=== PATIENT | male | born 1935 | race Caucasian/White ===

== ENCOUNTER → 2016-08-19 | Outpatient (CLI) | payer MEDICARE ==
--- NOTE | 2016-08-19 15:31 | XR ---
EXAMINATION TYPE: XR chest 2V DATE OF EXAM: 08/19/2016 COMPARISON: Chest x-ray October 19, 2013 HISTORY: Cough for 2 weeks. TECHNIQUE: Frontal and lateral views of the chest are obtained. FINDINGS: Cardiac silhouette size is stable and within normal limits with atherosclerotic aortic knob . There is chronic emphysematous change with right-sided volume loss redemonstrated. There are calcif ied upper lung nodules bilaterally and right basilar nodular opacities. There is new right basilar op acity however present. Suspicious air-fluid level is seen. No thick walled cavitation noted. Left valerie g shows no new suspicious opacity. Osseous structures are intact. IMPRESSION: Chronic parenchymal changes with right-sided volume loss redemonstrated. Scattered calci fied nodules raises concern for old varicella infection. New right basilar infiltrate and/or atelecta sis and small right pleural effusion however is felt present. Loculated effusion or air-fluid level i n thin-walled cyst may be present.
== END | disposition home or self-care (01) ==
LOC: RADXRMAIN 15:00
PROVIDERS: ATTEND Family Medicine
DX: J90 Pleural effusion, not elsewhere classified (principal); J98.4 Other disorders of lung; R91.1 Solitary pulmonary nodule; R91.8 Other nonspecific abnormal finding of lung field
CPT/HCPCS: 71020

== ENCOUNTER → 2016-09-01 | Outpatient (CLI) | payer MEDICARE ==
--- NOTE | 2016-09-01 12:57 | XR ---
EXAMINATION TYPE: XR chest 2V DATE OF EXAM: 09/01/2016 COMPARISON: Chest x-ray December 20, 2016. HISTORY: Recent pneumonia progress study. TECHNIQUE: Frontal and lateral views of the chest are obtained. FINDINGS: There is background of chronic emphysematous change with right greater than left biapical pleural thickening and scarring. Scattered calcified nodules bilaterally are seen more prominent in t he right lung. There is right-sided volume loss with mediastinal shift redemonstrated. There is persi stent small right pleural effusion. There is improved aeration right lung base with some residual sca rring or atelectasis. No new focal airspace opacity or pneumothorax is seen bilaterally. The cardiac silhouette size is within normal limits. The osseous structures are intact. IMPRESSION: Chronic changes with persistent small right pleural effusion and residual right basilar scarring and/or atelectasis. Improved or resolved right basilar acute infiltrate is felt present.
== END | disposition home or self-care (01) ==
LOC: RADXRMAIN 12:25
PROVIDERS: ATTEND Family Medicine
DX: J98.11 Atelectasis (principal); J90 Pleural effusion, not elsewhere classified; J98.4 Other disorders of lung
CPT/HCPCS: 71020

== ENCOUNTER → 2016-09-24 | Outpatient (CLI) | payer MEDICARE ==
[2016-09-24 11:34] LABS: Blood Urea Nitrogen 17 mg/dL (9-20); Non-African American GFR(MDRD) >60 (>60 ml/min/1.73 sqM)
--- NOTE | 2016-09-24 14:10 | CT ---
EXAMINATION TYPE: CT chest w con DATE OF EXAM: 09/24/2016 COMPARISON: NONE HISTORY: Abnormal lung sounds CT DLP: 138.8 mGycm Automated exposure control for dose reduction was used. CONTRAST: CT scan of the chest is performed with IV Contrast, patient injected with 100 mL of Omnipaque 300. FINDINGS: LUNGS: Calcified pleural plaques are seen throughout both lung arthur right much greater than left. T here is a masslike density right medial lung base with disorganized vasculature which likely reflects rounded atelectasis. Consider follow-up study in 6 months. There is a small right-sided pleural effu joey. 2 or 3 noncalcified pulmonary nodules left lung mid and lower lung zones measuring up to 4 mm. Scattered calcified nodules within the right lung. There is bilateral bronchiectasis. Hyperexpansion of the left lung relative to the right lung is noted. Mild elevation right hemidiaphragm. Hyperinflat ion compatible with COPD. MEDIASTINUM: There are no greater than 1 cm hilar or mediastinal lymph nodes. No pericardial effusi on is seen. Thoracic aorta is of normal caliber. The heart is not enlarged. UPPER ABDOMEN: No significant abnormality appreciated. OTHER: No additional significant abnormality is seen. IMPRESSION: 1. 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 Probable rounded atelectasis right medi al lung base. Scattered pulmonary nodules. Follow-up study in approximately 6 months is advised.
== END | disposition home or self-care (01) ==
LOC: RADCTMAIN 10:52
PROVIDERS: ATTEND Family Medicine
DX: R91.8 Other nonspecific abnormal finding of lung field (principal)
CPT/HCPCS: 82565; 84520; 71260; 36415; Q9967

== ENCOUNTER → 2017-09-14 | Outpatient (CLI) | payer MEDICARE ==
--- NOTE | 2017-09-14 10:22 | XR ---
EXAMINATION TYPE: XR foot complete LT, XR ankle complete LT DATE OF EXAM: 09/14/2017 CLINICAL HISTORY: Pain and swelling of the lateral foot and ankle after a fall TECHNIQUE: Frontal, lateral and oblique images of the left ankle and foot are obtained. COMPARISON: None. FINDINGS: There is no acute fracture/dislocation evident in the left ankle. The ankle mortise appea rs within normal limits. Soft tissue swelling is seen Kager's fat pad. There is a subtle step-off of the medial cortical surface of the base of the second metatarsal on the frontal view suspicious for nondisplaced fracture. This appears nondisplaced and noncomminuted. Shirley elate with point tenderness as there is no focal overlying soft tissue swelling. Extensive arthropath y is noted at the first metatarsophalangeal joint with opposing surface sclerosis, marginal osteophyt es and joint space loss. Findings are seen to a lesser degree of the distal interphalangeal joints. Overlying soft tissue is unremarkable. Minimal atherosclerosis is seen of the dorsalis pedis artery. IMPRESSION: 1. Findings suspicious for nondisplaced transversely oriented noncomminuted fracture of the base of t he second metatarsal however there is no overlying soft tissue swelling and therefore correlation wit h point tenderness is recommended. CT could be performed for confirmation if there is further concern . 2. Mild nonspecific soft tissue swelling within Kager's fat pad that can be seen in Achilles injury, however no discrete Achilles discontinuity is present. MR could be confirmed if there is further clin ical concern for partial tear.
== END | disposition home or self-care (01) ==
LOC: RADXRMAIN 09:44
PROVIDERS: ATTEND Family Medicine
DX: M25.472 Effusion, left ankle (principal); M79.672 Pain in left foot

== ENCOUNTER → 2019-01-11 | Outpatient (CLI) | payer MEDICARE ==
--- NOTE | 2019-01-11 11:22 | MR ---
EXAMINATION TYPE: MR iac wo con DATE OF EXAM: 01/11/2019 COMPARISON: NONE HISTORY: Rt side hearing loss CONTRAST: 6.5 mL MultiHance TECHNIQUE: T1-weighted sagittal, diffusion, T2 axial views of the brain are submitted. Images of the IACs could not be performed as the patient is a could not tolerate the exam and requested the exam be discontinu ed. FINDINGS: Exam is incomplete and severely limited. Grossly the craniocervical junction is maintained in the mandeep la turcica has a normal appearance. Diffusion imaging demonstrates no diagnostic evidence of acute ischemia. No midline shift or mass eff ect. [id number] generalized degenerative change seen and there is nonspecific scattered areas o f abnormal white matter signal. Mild changes of right chronic mastoiditis. Changes of mild chronic si nusitis. IMPRESSION: 1. Degenerative and nonspecific white matter changes most typical remote microvascular ischemia.
== END | disposition home or self-care (01) ==
LOC: RADMRIMAIN 09:43
PROVIDERS: ATTEND Otolaryngology
DX: R90.89 Other abnormal findings on diagnostic imaging of central nervous system (principal); H91.91 Unspecified hearing loss, right ear
CPT/HCPCS: 70551